=== PATIENT | male | born 1955 | race Caucasian/White ===

== ENCOUNTER → 2020-08-02 02:39 | Outpatient (CLI) | payer MEDICARE, SELFPAY ==
[2020-08-02 18:21] LABS: SARS-CoV-2 RNA PCR Negative
== END ==
PROVIDERS: PCP Internal Medicine; Visit Provider Internal Medicine Gastroenterology
DX: Z01.812 Encounter for preprocedural laboratory examination (principal); Z20.822 Contact with and (suspected) exposure to COVID-19
CPT/HCPCS: C9803; U0003; U0005

== ENCOUNTER 2020-08-05 01:11 | Day surgery (SDC) | payer MEDICARE, SELFPAY ==
[2020-07-28 15:21] VITALS: BMI 29.4
[2020-08-05 07:27] VITALS: BP 113/71; PULSE 61; RESP 16; TEMP 36.5; O2SAT 98
[2020-08-05] MEDS: LACTATED RINGERS 1,000 ML 150 ML IV CONT (07:36)
--- NOTE | 2020-08-05 07:52 | P.HP_ITS ---
History of Present Illness History of Present Illness Consent: Risks, benefits, and alternatives have been discussed and questions answered. Patient agrees to proceed with procedure. Chief complaint: neoplasm screening Narrative: Steve Vigil is a 65 year old male here for colon cancer screening. His mother had colon cancer [facility] Family History Family History Mother Colon polyp Other Carcinoma of colon Diabetes mellitus Family history of alcoholism Social History Social History Smoking status: Never smoker Alcohol intake: never Substance use: never Substance use type: does not use Living arrangements: with family Spiritual care concerns: No Meds Home Medications and Allergies Home Medications Medication Instructions Recorded Confirmed Type No Home Medications 07/28/20 07/28/20 History Allergies Allergy/AdvReac Type Severity Reaction Status Date / Time No Known Drug Allergies Allergy Unknown Unknown Verified 08/05/20 07:42 Vital Signs Vital Signs - 24 hr 08/05/20 07:27 Temperature 36.5 C Pulse Rate 61 Respiratory Rate 16 Blood Pressure 113/71 Pulse Oximetry 98 Exam Resp: Auscultation: clear to auscultation bilaterally Cardio: Rate: regular rate Rhythm: regular rhythm GI: GI Palp: Yes Soft to palpation and No Tenderness to palpation present (GI) Assessment and Plan Assessment and plan (1) Colon cancer screening: Code(s): Z12.11 - Encounter for screening for malignant neoplasm of colon Status: Acute Assessment and Plan: Colonoscopy with possible biopsy or polypectomy or cautery or injection of substances.
--- NOTE | 2020-08-05 08:00 | WPDANESEPPF ---
Anes - Initial Pre Proc Eval Procedure: Operation Date: 08/05/20 08:30 Proposed Procedures p Screening Colonoscopy - Kalpesh Downing MD Date/Time: 08/05/20 08:00 Surgeon: Kalpesh Downing MD Pre Op Diagnosis: neoplasm screening Patient Data Age: 65 Gender: M Height: 5 ft 10 in Weight: 92.3 kg Last Vital Signs Temp 97.7 F 08/05/20 07:27 Pulse 61 08/05/20 07:27 Resp 16 08/05/20 07:27 BP 113/71 08/05/20 07:27 Pulse Ox 98 08/05/20 07:27 Allergies Allergy/AdvReac Type Severity Reaction Status Date / Time No Known Drug Allergies Allergy Unknown Unknown Verified 08/05/20 07:42 Home Medications Medication Instructions Recorded Confirmed Type No Home Medications 07/28/20 07/28/20 History Patient hx anesthesia problems: none Family hx anesthesia problems: none PMFSH Past Medical History Medical History (Updated 08/05/20 @ 08:00 by Rick Mireles MD) Healthy adult Family History Family History Mother Colon polyp Other Carcinoma of colon Diabetes mellitus Family history of alcoholism Social History Social History Smoking status: Never smoker Alcohol intake: never Substance use: never Substance use type: does not use Living arrangements: with family Spiritual care concerns: No Anes - Eval Final PreProcedure Day of Procedure 08/05/20 08:00 Patient weight: normal Heart: regular rate and rhythm Lungs: clear to auscultation Airway: Mallampati scale class II Neurological: alert and oriented Last oral intake: >/= 8 hours ASA classification: I Emergent: no Anesthetic plan: proceed Anesthesia type and monitoring: general GIVS and standard monitoring Informed Consent: The patient's anesthetic plan and its attendant risks and benefits were discussed with the patient/family/POA. Questions were solicited and answers provided to the satisfaction of the patient/family/POA.
[2020-08-05 08:39] VITALS: BP 111/58; PULSE 69; RESP 23; O2SAT 97
[2020-08-05 08:49] VITALS: BP 106/62; PULSE 56; RESP 12; O2SAT 100
[2020-08-05 08:59] VITALS: BP 113/71; PULSE 55; RESP 18; O2SAT 100
[2020-08-05 09:09] VITALS: BP 110/69; PULSE 55; RESP 18; O2SAT 100
== END 2020-08-05 09:20 | disposition home or self-care (01) ==
PROVIDERS: PCP Internal Medicine; Visit Provider Internal Medicine Gastroenterology
PROC: 0DJD8ZZ Inspection of Lower Intestinal Tract, Via Natural or Artificial Opening Endoscopic (ICD-10-PCS; CPT 45378; principal; 2020-08-05 08:30)
DX: Z12.11 Encounter for screening for malignant neoplasm of colon (principal); D12.5 Benign neoplasm of sigmoid colon; D12.2 Benign neoplasm of ascending colon
CPT/HCPCS: 45385; 45380; 88305; J2001; J2704; J7120

== ENCOUNTER 2021-09-08 02:12 | Day surgery (SDC) | payer OTHER, SELFPAY ==
[2021-09-01 12:48] VITALS: BMI 29.4
[2021-09-08 09:25] VITALS: BP 126/74; PULSE 63; RESP 18; TEMP 36.6; O2SAT 98
[2021-09-08] MEDS: LACTATED RINGERS 1,000 ML 150 ML IV CONT (09:32)
--- NOTE | 2021-09-08 10:07 | WPDGICN ---
Assessment and Plan Assessment and plan (1) GERD (gastroesophageal reflux disease): Code(s): K21.9 - Gastro-esophageal reflux disease without esophagitis Status: Acute Assessment and Plan: EGD with possible biopsy or dilatation or cautery. GI Consult Note Consult date/time: 09/08/21 10:07 HPI: Steve Vigil Jr. is a 66 year old male Who was referred for investigation of acid reflux symptoms. He states that he gets heartburn frequently. He took Nexium for a while 10 or 12 years ago but stopped taking it because of concerns about side effects. Over the years he has used Tums quite a bit. Sometimes this gives him relief, sometimes it does not. Recently he has had episodes of vomiting. He will eat a meal then get a coughing spell and started vomiting up food he has just eaten. He denies dysphagia or weight loss. He did restart taking Nexium recently. He has never had an EGD to investigate for possible Estrada's esophagus. Review of Systems Review of Systems: All systems reviewed & are unremarkable except as noted in HPI and below PMFSH Past Medical History Medical History Healthy adult Family History Family History Mother Colon polyp Other Carcinoma of colon Diabetes mellitus Family history of alcoholism Social History Social History Smoking status: Never smoker Alcohol intake: current Alcohol use details: Rarely Substance use: never Substance use type: does not use Living arrangements: with family Spiritual care concerns: No Meds Home Medications and Allergies Home Medications Medication Instructions Recorded Confirmed Type omeprazole 20 mg PO DAILY 09/01/21 09/01/21 History Allergies Allergy/AdvReac Type Severity Reaction Status Date / Time No Known Drug Allergies Allergy Unknown Unknown Verified 09/08/21 09:23 Vital Signs Vital Signs - 24 hr 09/08/21 09:25 Temperature 36.6 C Pulse Rate 63 Respiratory Rate 18 Blood Pressure 126/74 Pulse Oximetry 98 Exam Const: General: alert Orientation/consciousness: patient oriented x3 Resp: Auscultation: clear to auscultation bilaterally Cardio: Rhythm: regular rhythm GI: GI Palp: Yes Soft to palpation and No Tenderness to palpation present (GI) Neuro: General: patient oriented x3
[2021-09-08 10:31] VITALS: BP 115/79; PULSE 65; RESP 20; O2SAT 94
[2021-09-08 10:41] VITALS: BP 124/76; PULSE 68; RESP 20; O2SAT 98
[2021-09-08 10:51] VITALS: BP 125/74; PULSE 62; RESP 20; O2SAT 96
== END 2021-09-08 11:03 | disposition home or self-care (01) ==
PROVIDERS: PCP Internal Medicine; Visit Provider Internal Medicine Gastroenterology
PROC: 0DJ08ZZ Inspection of Upper Intestinal Tract, Via Natural or Artificial Opening Endoscopic (ICD-10-PCS; CPT 43235; principal; 2021-09-08 10:30)
DX: K21.9 Gastro-esophageal reflux disease without esophagitis (principal); K22.70 Barrett's esophagus without dysplasia; K86.89 Other specified diseases of pancreas
CPT/HCPCS: 43239; 88305; 88313; J2704; J7120

== ENCOUNTER 2022-07-21 14:38 | Emergency (ER) | payer MEDICARE, SELFPAY ==
--- NOTE | ~2022-07-21 | XR_ITS ---
EXAMINATION: XR knee LT min 4V DATE: 07/21/2022 15:00 INDICATION: Left knee pain. Fall. TECHNIQUE: 4 views of left knee were obtained. COMPARISON: None. FINDINGS: Bone alignment is normal. No fracture. There is mild tricompartmental osteoarthritis. No kn ee joint effusion. IMPRESSION: 1. Mild left knee osteoarthritis. Reviewed, dictated and finalized at location A. [employer]
[2022-07-21 14:49] VITALS: BP 125/76; PULSE 68; RESP 12; TEMP 36.8; O2SAT 99
--- NOTE | 2022-07-21 15:21 | ED.LOWEXIN ---
HPI - Extremity Injury (Lower) General Chief Complaint: Extremity Injury, Lower Stated Complaint: LEFT KNEE PAIN Time Seen by Provider: 07/21/22 15:15 Source: patient Mode of arrival: ambulatory Limitations: no limitations History of Present Illness HPI Narrative: Patient presents today complaining of left knee pain. He was at work today, attempting to step up onto a trailer when he felt a pop in his left knee and twisted the knee. Currently rates his pain 8/10 and has tried no [id number] interventions prior to arrival. Denies numbness or tingling in the leg or foot. Related Data Home Medications Medication Instructions Recorded Confirmed omeprazole 20 mg tablet,delayed 20 mg PO DAILY 09/01/21 07/21/22 release Allergies Allergy/AdvReac Type Severity Reaction Status Date / Time No Known Drug Allergies Allergy Unknown Unknown Verified 07/21/22 14:46 Review of Systems Review of Systems: CONSTITUTIONAL: Denies body aches, fever, chills, or sweats. EYES: Denies visual changes, redness, or discharge. ENT: Denies rhinorrhea, congestion, sore throat, or otalgia. CARDIOVASCULAR: Denies chest pain, palpitations, or edema. RESPIRATORY: Denies cough or dyspnea. GASTROINTESTINAL: Denies abdominal pain, nausea, vomiting, or diarrhea. GENITOURINARY: Denies dysuria or hematuria. SKIN: Denies rash, itching, or wounds. MUSCULOSKELETAL: Denies back pain, or myalgia.+ left knee pain NEUROLOGIC: Denies headache, numbness, tingling, or weakness. PSYCH: Denies depression or anxiety. [facility] Past Medical History Medical History Healthy adult Family History Family History Mother Colon polyp Other Carcinoma of colon Diabetes mellitus Family history of alcoholism Social History Social History Smoking status: Never smoker Alcohol intake: current Alcohol use details: Rarely Substance use: never Substance use type: does not use Living arrangements: with family Spiritual care concerns: No Comments At time of signature, I have reviewed and agree with nursing past medical, surgical, social and family history unless otherwise noted. Please see nursing chart for further information. There is no relevant family history pertinent to the presenting complaint Exam Narrative: GENERAL: Well-appearing, well-nourished, and in no acute distress. HEAD: Normocephalic, atraumatic. EYES: EOMI. No redness or drainage. Conjunctivae normal. ENT: Mucous membranes pink and moist. NECK: Normal AROM. CHEST: No respiratory distress. EXTREMITIES: Left knee: Patient localizes pain to the anterior knee with weight-bearing, but no pain with sitting. Patient's knee is nontender with with palpation. No edema or ecchymosis noted. Full P ROM of the knee without pain. Distal sensation intact. Capillary refill normal. Posterior tibial pulse normal. SKIN: Warm, dry, no rash. Capillary refill normal. Normal skin turgor. NEURO: No focal deficits. Alert and oriented x3. Gait steady. PSYCH: Normal affect. No signs of depression or anxiety. Course Course Level of Care: Express Care Visit Vital Signs Vital signs: Vital Signs Temperature 98.3 F 07/21/22 14:49 Pulse Rate 68 07/21/22 14:49 Respiratory Rate 12 07/21/22 14:49 Blood Pressure 125/76 07/21/22 14:49 Pulse Oximetry 99 07/21/22 14:49 Oxygen Delivery Room Air 07/21/22 14:49 Temperature 98.3 F 07/21/22 14:49 Pulse Rate 68 07/21/22 14:49 Respiratory Rate 12 07/21/22 14:49 Blood Pressure 125/76 07/21/22 14:49 Pulse Oximetry 99 07/21/22 14:49 Oxygen Delivery Room Air 07/21/22 14:49 Reviewed. Pt has been instructed to follow up with his PCP regarding his elevated blood pressure today. MDM - Extremity Injury (Lower) MDM Narrative Medica
== END 2022-07-21 15:28 | disposition home or self-care (01) ==
PROVIDERS: Emergency Provider Nurse Practitioner; PCP Internal Medicine
DX: M25.562 Pain in left knee (principal)
CPT/HCPCS: 73564; 99213; G0463